=== PATIENT | female | born 1970 | race Caucasian/White ===

== ENCOUNTER → 2016-03-22 | Outpatient (CLI) | payer BC ==
[2016-03-22 19:11] LABS: MEAN CORPUSCULAR HEMOGLOBIN 30.8 pg (27.0-33.0); MEAN CORPUSCULAR HGB CONC 32.3 g/dl (32.0-36.5); MEAN CORPUSCULAR VOLUME 95.5 fl (80.0-96.0); RED CELL DISTRIBUTION WIDTH 12.9 % (11.5-14.5); WHITE BLOOD COUNT 5.9 K/mm3 (4.0-10.0)
[2016-03-22 19:29] LABS: ALBUMIN 3.6 GM/DL (3.2-5.2); ALBUMIN/GLOBULIN RATIO 1.09 (1.00-1.93); ALKALINE PHOSPHATASE 37 U/L (45-117); ALT/SGPT 26 U/L (12-78); ANION GAP 8 MEQ/L (8-16); AST/SGOT 17 U/L (15-37); BILIRUBIN,TOTAL 0.4 MG/DL (0.2-1.0); BLOOD UREA NITROGEN 11 MG/DL (7-18); CALCIUM LEVEL 8.5 MG/DL (8.5-10.1); CARBON DIOXIDE LEVEL 26 MEQ/L (21-32); CHLORIDE LEVEL 106 MEQ/L (98-107); CHOLESTEROL LEVEL 247 MG/DL (<200); CREATININE FOR GFR 0.77 MG/DL (0.55-1.02); FREE T4 0.97 NG/DL (0.76-1.46); GLOMERULAR FILTRATION RATE > 60.0 (>58); GLUCOSE, FASTING 87 MG/DL (70-105); POTASSIUM SERUM 4.4 MEQ/L (3.5-5.1); SODIUM LEVEL 140 MEQ/L (136-145); TOTAL PROTEIN 6.9 GM/DL (6.4-8.2); TRIGLYCERIDES LEVEL 109 MG/DL (<150)
== END ==
LOC: M WUC 09:49
PROVIDERS: ATTEND Nurse Practitioner Family
DX: R73.9 Hyperglycemia, unspecified (principal); E78.00 Pure hypercholesterolemia, unspecified

== ENCOUNTER → 2016-06-03 | Outpatient (REF) | payer BC ==
[~2016-06-03] MED LIST: ASCO25TA PO; CYCL10TA PO; ECOT81TA5 PO; FISH1000 PO; IRON65TA PO; LEVO112T2 PO; MAGN1CAP PO; METF1000 PO; MULT1TAB10 PO; SEASTAB PO; SIMV40TA2 PO; VITATAB11 PO; ZYRT10CA PO
[2016-06-03 17:27] LABS: MEAN CORPUSCULAR HEMOGLOBIN 31.4 pg (27.0-33.0); MEAN CORPUSCULAR HGB CONC 33.1 g/dl (32.0-36.5); MEAN CORPUSCULAR VOLUME 94.9 fl (80.0-96.0)
[2016-06-03 17:45] LABS: ANION GAP 10 MEQ/L (8-16); BLOOD UREA NITROGEN 14 MG/DL (7-18); CARBON DIOXIDE LEVEL 25 MEQ/L (21-32); CHLORIDE LEVEL 106 MEQ/L (98-107); GLOMERULAR FILTRATION RATE > 60.0 (>58); GLUCOSE, FASTING 116 MG/DL (70-105); SODIUM LEVEL 141 MEQ/L (136-145)
== END ==
LOC: M LAB REF 16:20
PROVIDERS: ATTEND Anesthesiology
DX: Z02.89 Encounter for other administrative examinations (principal)

== ENCOUNTER → 2016-06-14 | Outpatient (CLI) | payer BC | LOC: M WUC 10:29 | PROVIDERS: ATTEND Nurse Practitioner Family | DX: E78.00 Pure hypercholesterolemia, unspecified (principal) ==

== ENCOUNTER → 2016-06-14 | Outpatient (CLI) | payer BC ==
[2016-06-14 18:04] LABS: FREE T4 0.75 NG/DL (0.76-1.46)
== END ==
LOC: M WUC 10:33
PROVIDERS: ATTEND Internal Medicine
DX: E06.3 Autoimmune thyroiditis (principal); R73.02 Impaired glucose tolerance (oral)

== ENCOUNTER 2016-06-16 08:22 | Day surgery (SDC) | payer BC ==
[2016-06-16] VITALS (8 sets, daily range): BP systolic 138–185; BP diastolic 72–100
[~2016-06-16] VITALS: Ht 160 cm; Wt 93.0 kg
[~2016-06-16 08:22] MED LIST changes: +LIDOCAINE 2% INJ 100 MG/5 ML SDV (FOR ANES.) As Ordered ONE; +MIDAZOLAM INJ 2 MG/2 ML VIAL (J2250) As Ordered ONE; +PROPOFOL 200 MG/20 ML VIAL As Ordered ONE; +ROCURONIUM BROMIDE 50 MG/5 ML VIAL As Ordered ONE; +fentaNYL 250 MCG/5 ML INJECTION (J3010) As Ordered ONE
[2016-06-16] MEDS ORDERED: LR 1,000 ML IV SCH ×3 (08:30→12:45)
[2016-06-16 09:10] LABS: CONTROL LINE HCG INT CTR LINE PRESENT
[2016-06-16] MEDS ORDERED: SCOPOLAMINE 1.5 MG TRANSDERMAL As Ordered ONE (09:46)
[2016-06-16] MEDS ORDERED: SCOPOLAMINE 1.5 MG TRANSDERMAL TOP ONE (10:00)
[2016-06-16] MEDS ORDERED: ONDANSETRON 4MG/2ML VIAL (J2405) As Ordered ONE (12:07)
[2016-06-16] MEDS ORDERED: GLYCOPYRROLATE INJ 0.2 MG/ML 2 ML VIAL As Ordered ONE (12:07)
[2016-06-16] MEDS ORDERED: KETOROLAC 60 MG/2 ML VIAL (J1885) As Ordered ONE (12:07)
[2016-06-16] MEDS ORDERED: NEOSTIGMINE 1MG/ML 5 ML SYRINGE (J2710) As Ordered ONE (12:07)
[2016-06-16] MEDS ORDERED: fentaNYL 100 MCG/2 ML INJECTION (J3010) As Ordered ONE (12:08)
[2016-06-16] MEDS ORDERED: fentaNYL 100 MCG/2 ML INJECTION (J3010) IV PRN (12:45)
[2016-06-16] MEDS ORDERED: diphenhydrAMINE INJ 50MG/ML VIAL (J1200) IV PRN (12:45)
[2016-06-16] MEDS ORDERED: PROMETHAZINE INJ 25 MG/ML VIAL (J2550) IV PRN (12:45)
[2016-06-16] MEDS ORDERED: ONDANSETRON 4MG/2ML VIAL (J2405) IV PRN (12:45)
[2016-06-16] MEDS ORDERED: NORCO, ANEXSIA 5/325MG TABLET (HYDROcodone/ACETAMINOPHEN) PO PRN (12:45)
[2016-06-16] MEDS ORDERED: IBUPROFEN 600 MG TAB PO PRN (12:45)
[2016-06-16] MEDS ORDERED: NALOXONE INJ 0.4 MG/1 ML VIAL (J2310) IV PRN (12:45)
[2016-06-16] MEDS ORDERED: MORPHINE PCA 1MG/ML 100ML CADD IV PRN (12:45)
[2016-06-16] MEDS ORDERED: NALBUPHINE HCL 10 MG/ML AMP (J2300) IV PRN (12:45)
[2016-06-16] MEDS ORDERED: EPIDURAL/PCA KEYS XX PRN (12:45)
[2016-06-16] MEDS: LR 1,000 ML IV SCH ×2 (14:55→18:52)
[2016-06-16] MEDS: ASCORBIC ACID 500 MG TAB PO SCH (14:55)
--- NOTE | 2016-06-16 16:39 | RO ---
DATE OF PROCEDURE: 06/16/2016 PREOPERATIVE DIAGNOSES/INDICATION FOR SURGERY: 1. Menorrhagia. 2. Dysmenorrhea. ADDITIONAL DIAGNOSIS: Fibroids POSTOPERATIVE DIAGNOSIS: 1. Menorrhagia. 2. Dysmenorrhea. PROCEDURE: Laparoscopically assisted vaginal hysterectomy and bilateral salpingo-oophorectomy ([facility]) SURGEON: Daniella Lee MD CAN VACUUM TESTER: ANESTHESIA: General endotracheal anesthesia. BRIEF DESCRIPTION OF PROCEDURE AND FINDINGS: Angelica was brought to the operating room where sufficient general endotracheal anesthesia was induced. She was prepped, draped and positioned in the usual fashion. The Rivera with the ability to backfill that we used to check the bladder was placed and then the uterine manipulator was placed. Attention was then turned to the abdomen where a transverse semi-lunar incision was made below the umbilicus. Sharp and blunt dissection were continued tissues to the level of the rectus fascia which was elevated with Deniz clamps, transversely incised, secured with a #0 Vicryl retention suture and then the peritoneum entered under direct visualization. The Tania cannula was then placed without difficulty and secured in place with a #0 Vicryl retention suture. The CO2 was then hooked up. We attempted to initiate CO2 insufflation. There was some difficulty with the insufflator although the computer reported that it was working normally, it did not develop pressure and did not actually put out any carbon dioxide gas. After multiple checks on that particular instrument, we then went ahead and called for a new CO2 insufflator. We were not able to proceed with the case until the insufflator was changed out. This took give or take an approximately 40 minute delay of the case. After we put in a new insufflator though and had everything hooked up again we were able to insufflate without difficulty. Visualization of the abdominal and pelvic cavity showed normal shiny peritoneal surfaces throughout. There is no excretion ascites nor exudate. Descending colon did have a few tiny adhesions to the pelvic sidewall and the latera abdominal sidewall. These are shown with a smooth manipulator. They are not tenting or moving or altering the course of the bowel in any way. We did not take all of those down. There does not appear to be any other significant lesions in regards to adhesions or scarring. There was a right frontal fibroid and this is photographed. We then placed through the operative port the 45 mm Enseal and we were able to use that through the port to isolate, cauterize, and transect the infundibulopelvic ligament bilaterally and the round ligaments bilaterally in the superior aspect of the broad. Having dissected these bilaterally, we turned out attention below. The uterine manipulator was removed. The instruments of course were removed from the trocar at the umbilicus and we made a circumferential incision around the base of the cervix, securing it of course with 2 single tooth tenacula. We then isolated the cardinal ligaments, clamped, transected and ligated those. We then clamped, transected and ligated the uterosacrals and entered the peritoneum posteriorly and then continued the dissection anteriorly to enter the peritoneum and continue to isolate, clamp, transect and ligated the uterine vasculature which was done in a sequential fashion along the lateral aspect of the uterus until the previous dissection with the Enseal was reached and the uterus with the attached ovaries and tube and of course the fibroid was then delivered. Pedicles were evaluated. Good hemostasis was confirmed. Angle stitches of #0 Vicryl were used to close the vaginal cuff and of course the uterosacrals were re-secured and the cuff closed with #0 Vicryl in a running lock stitch. The umbilical trocar was then removed. Fascial wounds at the umbilicus were closed with the #0 Vicryl retention sutures and then the skin closed at the umbilicus with the #3-0 subcuticular stitch with good approximation and hemostasis of both layers. The procedure was then ended. ESTIMATED BLOOD LOSS: About 100 mL. FLUID REPLACEMENT: Crystalloid. COMPLICATIONS: None. CONDITION AND DISPOSITION: Angelica tolerated the procedure well and was recovering in the recovery room in good condition.
[2016-06-16] MEDS ORDERED: metFORMIN (GLUCOPHAGE) 1000 MG TABLET PO SCH (18:00)
[2016-06-16] MEDS: MAGNESIUM GLUCONATE 500 MG TAB PO SCH (18:52)
[2016-06-16] MEDS ORDERED: PROMETHAZINE INJ 25 MG/ML VIAL (J2550) IV ONE (20:15)
[2016-06-16] MEDS ORDERED: LEVOTHYROXINE 0.112 MG TAB (112 MCG) PO SCH (21:00)
[2016-06-16] MEDS ORDERED: SIMVASTATIN 20 MG TAB PO SCH (21:00)
[2016-06-17] VITALS: BP 162/71
[2016-06-17] MEDS: LR 1,000 ML IV SCH (02:30)
[2016-06-17 04:00] VITALS: BP 166/85
[2016-06-17] MEDS ORDERED: NORCO, ANEXSIA 5/325MG TABLET (HYDROcodone/ACETAMINOPHEN) PO PRN (06:00)
[2016-06-17 07:01] LABS: MEAN CORPUSCULAR HEMOGLOBIN 33.3 pg (27.0-33.0); MEAN CORPUSCULAR HGB CONC 35.3 g/dl (32.0-36.5); MEAN CORPUSCULAR VOLUME 94.5 fl (80.0-96.0); RED CELL DISTRIBUTION WIDTH 11.6 % (11.5-14.5); WHITE BLOOD COUNT 10.8 K/mm3 (4.0-10.0)
[2016-06-17] MEDS: MAGNESIUM GLUCONATE 500 MG TAB PO SCH (08:14)
[2016-06-17] MEDS: ASCORBIC ACID 500 MG TAB PO SCH (08:14)
[2016-06-17 08:26] VITALS: BP 162/94
== END 2016-06-17 09:08 | disposition home or self-care (01) ==
LOC: M SDC 08:22 → M PED 14:23 → M SDC 06-17 09:08
PROVIDERS: ATTEND Obstetrics & Gynecology
DX: N92.0 Excessive and frequent menstruation with regular cycle (principal); N94.6 Dysmenorrhea, unspecified; D25.9 Leiomyoma of uterus, unspecified; E88.81 Metabolic syndrome and other insulin resistance; E03.9 Hypothyroidism, unspecified; E06.3 Autoimmune thyroiditis; D64.9 Anemia, unspecified; T88.59XD Other complications of anesthesia, subsequent encounter; G43.909 Migraine, unspecified, not intractable, without status migrainosus; Z79.899 Other long term (current) drug therapy; Z79.82 Long term (current) use of aspirin
CPT/HCPCS: 36415; 58552; 84703; 85027; 86850; 86900; 86901; 88309; 96374; 96375; 96376; J0690; J1885; J2250; J2405; J2710; J3010

== ENCOUNTER → 2016-09-22 | Outpatient (CLI) | payer BC ==
[~2016-09-22] MED LIST changes: -LIDOCAINE 2% INJ 100 MG/5 ML SDV (FOR ANES.) As Ordered ONE; -METF1000 PO; +METF10004 PO; -MIDAZOLAM INJ 2 MG/2 ML VIAL (J2250) As Ordered ONE; -PROPOFOL 200 MG/20 ML VIAL As Ordered ONE; -ROCURONIUM BROMIDE 50 MG/5 ML VIAL As Ordered ONE; -fentaNYL 250 MCG/5 ML INJECTION (J3010) As Ordered ONE
[2016-09-22 11:18] LABS: FREE T4 0.99 NG/DL (0.76-1.46)
== END ==
LOC: M WUC 09:28
PROVIDERS: ATTEND Internal Medicine Endocrinology, Diabetes & Metabolism
DX: E06.3 Autoimmune thyroiditis (principal)

== ENCOUNTER → 2016-09-22 | Outpatient (CLI) | payer BC ==
[2016-09-22 10:39] LABS: MEAN CORPUSCULAR HGB CONC 34.6 g/dl (32.0-36.5); MEAN CORPUSCULAR VOLUME 92.6 fl (80.0-96.0); RED CELL DISTRIBUTION WIDTH 11.9 % (11.5-14.5)
== END ==
LOC: M WUC 09:24
PROVIDERS: ATTEND Nurse Practitioner Family
DX: E78.5 Hyperlipidemia, unspecified (principal); D58.9 Hereditary hemolytic anemia, unspecified

== ENCOUNTER → 2016-09-24 | Outpatient (CLI) | payer BC ==
[2016-09-24 13:24] LABS: MAGNESIUM LEVEL 2.2 MG/DL (1.8-2.4); POTASSIUM SERUM 4.2 MEQ/L (3.5-5.1)
== END ==
LOC: M WUC 10:07
PROVIDERS: ATTEND Nurse Practitioner Family
DX: R25.2 Cramp and spasm (principal)

== ENCOUNTER → 2016-10-22 | Outpatient (CLI) | payer BC | LOC: M WUC 09:27 | PROVIDERS: ATTEND Nurse Practitioner Family | DX: E06.3 Autoimmune thyroiditis (principal) ==

== ENCOUNTER → 2017-03-25 | Outpatient (CLI) | payer BC ==
[2017-03-25 12:52] LABS: HEMATOCRIT 40.8 % (36.0-47.0); HEMOGLOBIN 13.6 g/dl (12.0-16.0); MEAN CORPUSCULAR HEMOGLOBIN 30.8 pg (27.0-33.0); MEAN CORPUSCULAR HGB CONC 33.3 g/dl (32.0-36.5); MEAN CORPUSCULAR VOLUME 92.3 fl (80.0-96.0); PLATELET COUNT, AUTOMATED 221 10^3/uL (150-450); RED BLOOD COUNT 4.42 10^6/uL (4.00-5.40); RED CELL DISTRIBUTION WIDTH 12.2 % (11.5-14.5)
[2017-03-25 13:18] LABS: TOTAL 25(OH) VITAMIN D 39.4 NG/ML (30.0-100.0)
[2017-03-25 13:30] LABS: ALBUMIN 3.8 GM/DL (3.2-5.2); ALBUMIN/GLOBULIN RATIO 1.12 (1.00-1.93); ALKALINE PHOSPHATASE 85 U/L (45-117); ALT/SGPT 31 U/L (12-78); ANION GAP 7 MEQ/L (8-16); AST/SGOT 21 U/L (7-37); BILIRUBIN,TOTAL 0.4 MG/DL (0.2-1.0); BLOOD UREA NITROGEN 14 MG/DL (7-18); CALCIUM LEVEL 9.5 MG/DL (8.5-10.1); CARBON DIOXIDE LEVEL 30 MEQ/L (21-32); CHLORIDE LEVEL 105 MEQ/L (98-107); CHOLESTEROL LEVEL 220 MG/DL (<200); CHOLESTEROL RISK RATIO 3.055 (<5); CREATININE FOR GFR 0.75 MG/DL (0.55-1.30); GLOMERULAR FILTRATION RATE > 60.0 (>58); GLUCOSE, FASTING 97 MG/DL (70-100); HDL CHOLESTEROL 72 MG/DL (>40); LDL CHOLESTEROL 125.4 MG/DL (<100); MAGNESIUM LEVEL 2.1 MG/DL (1.8-2.4); NON-HDL-C 148 MG/DL; POTASSIUM SERUM 4.7 MEQ/L (3.5-5.1); SODIUM LEVEL 142 MEQ/L (136-145); TOTAL PROTEIN 7.2 GM/DL (6.4-8.2); TRIGLYCERIDES LEVEL 113 MG/DL (<150)
== END ==
LOC: M WUC 08:35
DX: E78.00 Pure hypercholesterolemia, unspecified (principal); E55.9 Vitamin D deficiency, unspecified
CPT/HCPCS: 83735

== ENCOUNTER → 2017-04-06 | Outpatient (CLI) | payer BC ==
[2017-04-06 17:35] LABS: C REACTIVE PROTEIN QUANTITATIV < 0.30 MG/DL (0.00-0.30)
[2017-04-06 17:35] LABS: RHEUMATOID FACTOR QUANT < 10.0 IU/ML (0-15.0)
[2017-04-08 14:13] LABS: ANTINUCLEAR ANTIBODIES DIRECT Negative (Negative)
== END ==
LOC: M WUC 13:47
DX: M25.50 Pain in unspecified joint (principal)
CPT/HCPCS: 86140

== ENCOUNTER → 2017-04-15 | Outpatient (CLI) | payer BC ==
[2017-04-15 14:40] LABS: FREE T4 0.96 NG/DL (0.76-1.46)
[2017-04-15 14:40] LABS: THYROID STIMULATING HORMONE 0.143 uIU/ML (0.358-3.740)
== END ==
LOC: M WUC 10:58
DX: E06.3 Autoimmune thyroiditis (principal)

== ENCOUNTER → 2017-06-09 | Outpatient (CLI) | payer BC | LOC: M WHC 08:05 | DX: Z12.31 Encounter for screening mammogram for malignant neoplasm of breast (principal); Z78.0 Asymptomatic menopausal state; Z92.0 Personal history of contraception | CPT/HCPCS: 77067 ==

== ENCOUNTER → 2017-07-13 | Outpatient (CLI) | payer BC | LOC: M WUC 15:43 | DX: M25.572 Pain in left ankle and joints of left foot (principal) ==

== ENCOUNTER → 2017-09-04 | Outpatient (CLI) | payer BC ==
[2017-09-04 14:29] LABS: THYROID STIMULATING HORMONE 0.342 uIU/ML (0.358-3.740)
[2017-09-04 14:29] LABS: FREE T4 0.97 NG/DL (0.76-1.46)
== END ==
LOC: M WUC 09:08
DX: E06.3 Autoimmune thyroiditis (principal)
CPT/HCPCS: 84443

== ENCOUNTER → 2017-09-25 | Outpatient (CLI) | payer BC ==
[2017-09-25 08:47] LABS: HEMATOCRIT 42.2 % (36.0-47.0); HEMOGLOBIN 14.2 g/dl (12.0-15.5); MEAN CORPUSCULAR HEMOGLOBIN 31.4 pg (27.0-33.0); MEAN CORPUSCULAR HGB CONC 33.6 g/dl (32.0-36.5); MEAN CORPUSCULAR VOLUME 93.4 fl (80.0-96.0); PLATELET COUNT, AUTOMATED 226 10^3/uL (150-450); RED BLOOD COUNT 4.52 10^6/uL (4.00-5.40); RED CELL DISTRIBUTION WIDTH 12.6 % (11.5-14.5); WHITE BLOOD COUNT 6.2 10^3/uL (4.0-10.0)
[2017-09-25 09:22] LABS: ALBUMIN 3.6 GM/DL (3.2-5.2); ALBUMIN/GLOBULIN RATIO 1.09 (1.00-1.93); ALKALINE PHOSPHATASE 82 U/L (45-117); ALT/SGPT 47 U/L (12-78); ANION GAP 10 MEQ/L (8-16); AST/SGOT 29 U/L (7-37); BILIRUBIN,TOTAL 0.3 MG/DL (0.2-1.0); BLOOD UREA NITROGEN 12 MG/DL (7-18); CALCIUM LEVEL 8.8 MG/DL (8.5-10.1); CARBON DIOXIDE LEVEL 27 MEQ/L (21-32); CHLORIDE LEVEL 107 MEQ/L (98-107); CHOLESTEROL LEVEL 221 MG/DL (<200); CHOLESTEROL RISK RATIO 3.298 (<5); CPK CREATINE PHOSPHOKINASE 128 U/L (26-192); CREATININE FOR GFR 0.73 MG/DL (0.55-1.30); FREE T4 1.02 NG/DL (0.76-1.46); GLOMERULAR FILTRATION RATE > 60.0 (>58); GLUCOSE, FASTING 109 MG/DL (70-100); HDL CHOLESTEROL 67 MG/DL (>40); LDL CHOLESTEROL 127.2 MG/DL (<100); NON-HDL-C 154 MG/DL; POTASSIUM SERUM 4.4 MEQ/L (3.5-5.1); SODIUM LEVEL 144 MEQ/L (136-145); THYROID STIMULATING HORMONE 0.383 uIU/ML (0.358-3.740); TOTAL PROTEIN 6.9 GM/DL (6.4-8.2); TRIGLYCERIDES LEVEL 134 MG/DL (<150)
[2017-09-25 09:54] LABS: ESTIMATED AVERAGE GLUCOSE 120 MG/DL (60-110); HEMOGLOBIN A1c 5.8 %
== END ==
LOC: M WUC 08:04
DX: E03.9 Hypothyroidism, unspecified (principal); E88.81 Metabolic syndrome and other insulin resistance
CPT/HCPCS: 82550

== ENCOUNTER → 2017-12-05 | Outpatient (CLI) | payer BC ==
[2017-12-05 20:37] LABS: ANION GAP 10 MEQ/L (8-16); BLOOD UREA NITROGEN 11 MG/DL (7-18); CALCIUM LEVEL 8.5 MG/DL (8.5-10.1); CARBON DIOXIDE LEVEL 25 MEQ/L (21-32); CHLORIDE LEVEL 107 MEQ/L (98-107); CREATININE FOR GFR 0.77 MG/DL (0.55-1.30); GLOMERULAR FILTRATION RATE > 60.0 (>58); GLUCOSE, FASTING 148 MG/DL (70-100); POTASSIUM SERUM 3.9 MEQ/L (3.5-5.1); SODIUM LEVEL 142 MEQ/L (136-145)
== END ==
LOC: M WUC 09:41
DX: E11.9 Type 2 diabetes mellitus without complications (principal)
CPT/HCPCS: 80048

== ENCOUNTER → 2018-04-10 | Outpatient (CLI) | payer BC ==
[2018-04-10 11:23] LABS: HEMATOCRIT 42.7 % (36.0-47.0); MEAN CORPUSCULAR HEMOGLOBIN 30.6 pg (27.0-33.0); MEAN CORPUSCULAR HGB CONC 32.8 g/dl (32.0-36.5); MEAN CORPUSCULAR VOLUME 93.2 fl (80.0-96.0); PLATELET COUNT, AUTOMATED 230 10^3/uL (150-450); RED BLOOD COUNT 4.58 10^6/uL (4.00-5.40); WHITE BLOOD COUNT 5.1 10^3/uL (4.0-10.0)
[2018-04-10 12:07] LABS: ALT/SGPT 43 U/L (12-78); BILIRUBIN,TOTAL 0.4 MG/DL (0.2-1.0); BLOOD UREA NITROGEN 12 MG/DL (7-18); CALCIUM LEVEL 8.9 MG/DL (8.5-10.1); CARBON DIOXIDE LEVEL 30 MEQ/L (21-32); CHLORIDE LEVEL 105 MEQ/L (98-107); CHOLESTEROL LEVEL 236 MG/DL (<200); CPK CREATINE PHOSPHOKINASE 123 U/L (26-192); CREATININE FOR GFR 0.74 MG/DL (0.55-1.30); GLOMERULAR FILTRATION RATE > 60.0 (>58); GLUCOSE, FASTING 114 MG/DL (70-100); HDL CHOLESTEROL 68 MG/DL (>40); LDL CHOLESTEROL 142 MG/DL (<100); NON-HDL-C 168 MG/DL; POTASSIUM SERUM 4.4 MEQ/L (3.5-5.1); SODIUM LEVEL 141 MEQ/L (136-145); THYROID STIMULATING HORMONE 0.582 uIU/ML (0.358-3.740); TOTAL PROTEIN 7.2 GM/DL (6.4-8.2); TRIGLYCERIDES LEVEL 129 MG/DL (<150)
[2018-04-10 12:18] LABS: HEMOGLOBIN A1c 6.1 %
== END ==
LOC: M WUC 09:02
PROVIDERS: ATTEND Internal Medicine Cardiovascular Disease
DX: E78.00 Pure hypercholesterolemia, unspecified (principal); I10 Essential (primary) hypertension; E03.9 Hypothyroidism, unspecified; E88.81 Metabolic syndrome and other insulin resistance

== ENCOUNTER → 2018-04-10 | Outpatient (CLI) | payer BC ==
[2018-04-10 12:13] LABS: BILIRUBIN,DIRECT 0.1 MG/DL (0.0-0.2); BILIRUBIN,TOTAL 0.4 MG/DL (0.2-1.0); CHOLESTEROL RISK RATIO 3.214 (<5); THYROID STIMULATING HORMONE 0.632 uIU/ML (0.358-3.740)
== END ==
LOC: M WUC 09:05
PROVIDERS: ATTEND Internal Medicine Endocrinology, Diabetes & Metabolism
DX: E06.3 Autoimmune thyroiditis (principal)

== ENCOUNTER → 2018-06-15 | Outpatient (CLI) | payer BC ==
[~2018-06-15] MED LIST changes: -ASCO25TA PO; +VITA1TAB23 PO
--- NOTE | 2018-06-15 17:03 | REP ---
DIAGNOSTIC MAMMOGRAM RIGHT BREAST WITH RIGHT BREAST ULTRASOUND: Multiple spot compression views of the right breast were performed. These confirm the presence of a somewhat lobulated nodule in the right breast slightly medial and inferior to the right nipple. This is approximately 5-6 cm from the nipple. Real-time sonographic evaluation of the right breast is performed. In the right retroareolar region about 2-3 cm from the nipple there is an oval complex cystic nodule. This may contain internal soft tissue components. It measures 6 x 3 x 6 mm. IMPRESSION; ACR 4 suspicious. A somewhat lobulated nodule is confirmed in the right breast, mid third, just medial and slightly inferior to the nipple line. By ultrasound there is a complex cystic and possibly partially solid nodule in the retroareolar region. I recommend ultrasound guided biopsy of the retroareolar nodule. If this does not correspond to the nodule on the mammogram then stereotactic biopsy is indicated of the nodule on the mammogram. The patient letter being requested is M4. Electronically Signed by Suhail Bird MD 06/16/2018 10:32 A
== END ==
LOC: M RAD 08:46
PROVIDERS: ATTEND Obstetrics & Gynecology
DX: N63.10 Unspecified lump in the right breast, unspecified quadrant (principal); N60.01 Solitary cyst of right breast

== ENCOUNTER → 2018-06-24 | Outpatient (CLI) | payer BC ==
[~2018-06-24] MED LIST changes: +LIDOCAINE 1% MDV 20ML VIAL As Ordered ONE
--- NOTE | 2018-06-24 14:42 | REP ---
RIGHT BREAST MAMMOGRAM: ML and CC views of the right breast are performed status post ultrasound guided biopsy of a complex nodule. A metallic clip is seen at the site of the biopsy. This does not correspond to the nodule seen on the mammogram. Therefore sterotactic biopsy is indicated for the nodule centrally behind the nipple identified on the prior mammograms of 06/10/2018 and 06/15/2018. Electronically Signed by Suhail Bird MD 06/25/2018 12:21 P
--- NOTE | 2018-06-25 11:16 | REP ---
ULTRASOUND GUIDED RIGHT BREAST BIOPSY The procedure was performed under the direct supervision of Dr. Bird The patient has a history of an oval complex cystic nodule measuring 6 x 3 x 6 mm 2-3 cm from the nipple seen on a previous ultrasound dated 06/15/2018. The risks and benefits of the procedure were explained to the patient and informed consent was obtained. The right breast nodule was localized using ultrasound guidance. The skin was prepped and draped in a sterile fashion. 1% Xylocaine was used as a local anesthetic. Using ultrasound guidance a 13-gauge suction assisted Mammotome needle was inserted and six core biopsy samples were obtained. A marker clip was placed at the biopsy site. The patient tolerated the procedure well and there were no immediate complications. After the appropriate amount of monitored convalescence the patient was discharged from the department. Reviewed by FREDY Bhatti 06/24/2018 04:48 P Electronically Signed by Suhail Bird MD 06/25/2018 11:07 A
== END ==
LOC: M RADPRO 11:14
PROVIDERS: ATTEND Obstetrics & Gynecology
DX: N60.11 Diffuse cystic mastopathy of right breast (principal)

== ENCOUNTER → 2018-07-01 | Outpatient (CLI) | payer BC ==
--- NOTE | 2018-07-01 13:47 | REP ---
POST PROCEDURE MAMMOGRAM: Post procedure mammogram performed following sterotactic biopsy of a nodule in the posterior mid right breast. A metallic marking clip was deployed following the biopsy. The biopsy clip appears to be displaced below and somewhat medial to the biopsy site. There do appear to be multiple needle fenestrations in the region of the nodule in question which would suggest successful biopsy. Recommend followup mammogram in 6 months. Electronically Signed by Suhail Bird MD 07/01/2018 04:23 P
--- NOTE | 2018-07-01 16:16 | REP ---
Stereotactic breast biopsy. This procedure is performed by FREDY Romero, under the personal supervision of Dr. Bird. The risks and benefits of the procedure were explained to the patient and informed consent was obtained both verbally and written. Directly prior to the start of the procedure, a formal timeout was done in the procedure room. The the lateral medial approach was utilized. The nodule was localized using stereotactic mammographic guidance. 7 ml of 1% lidocaine was used as a local anesthetic. And 8-gauge, suction assisted Mammotome needle was inserted and six core biopsy samples were obtained. A marker clip was placed at the biopsy site. The needle was removed and homeostasis was achieved. The patient tolerated the procedure well and there were no immediate complications. After appropriate monitoring the patient was discharged from the department. Impression: Technically successful stereotactic breast biopsy Reviewed by FREDY Gilmore 07/01/2018 01:40 P Electronically Signed by Suhail Bird MD 07/01/2018 04:07 P
== END ==
LOC: M RADPRO 10:46
PROVIDERS: ATTEND Nurse Practitioner Women's Health
DX: N60.11 Diffuse cystic mastopathy of right breast (principal)

== ENCOUNTER → 2018-12-08 | Outpatient (CLI) | payer OTHER ==
[~2018-12-08] MED LIST changes: +AUGM875T28 PO; -LIDOCAINE 1% MDV 20ML VIAL As Ordered ONE
[2018-12-08 10:49] LABS: CHOLESTEROL RISK RATIO 3.645 (<5)
== END ==
LOC: M WUC 08:37
PROVIDERS: ATTEND Internal Medicine Endocrinology, Diabetes & Metabolism
DX: E78.00 Pure hypercholesterolemia, unspecified (principal)

== ENCOUNTER 2019-01-28 17:40 | Emergency (ER) | payer MEDICAID, OTHER ==
[~2019-01-28] VITALS: Ht 160 cm; Wt 97.7 kg
[~2019-01-28 17:40] MED LIST changes: -SIMV40TA2 PO; +SIMV40TA20 PO
[2019-01-28] MEDS ORDERED: NS 1,000 ML IV ONE (18:00)
[2019-01-28] MEDS ORDERED: KETOROLAC 30 MG/ML VIAL (J1885) IV ONE (18:00)
[2019-01-28] MEDS ORDERED: ONDANSETRON 4MG/2ML VIAL (J2405) IV ONE (18:00)
[2019-01-28 18:50] LABS: BASO # 0.1 10^3/uL (0.0-0.2); BASO % 0.5 % (0.0-1.0); EOS % 0.3 % (0.0-3.0); HEMATOCRIT 44.9 % (36.0-47.0); LYMPH # 2.9 10^3/uL (1.5-5.0); LYMPH % 31.9 % (24.0-44.0); MEAN CORPUSCULAR HEMOGLOBIN 30.4 pg (27.0-33.0); MEAN CORPUSCULAR HGB CONC 33.4 g/dl (32.0-36.5); MEAN CORPUSCULAR VOLUME 91.1 fl (80.0-96.0); MONO # 0.6 10^3/uL (0.0-0.8); NEUTROPHILS # 5.6 10^3/uL (1.5-8.5); NEUTROPHILS % 61.1 % (36.0-66.0); PLATELET COUNT, AUTOMATED 249 10^3/uL (150-450); RED BLOOD COUNT 4.93 10^6/uL (4.00-5.40); WHITE BLOOD COUNT 9.2 10^3/uL (4.0-10.0)
[2019-01-28 19:05] LABS: ALBUMIN 4.1 GM/DL (3.2-5.2); BILIRUBIN,DIRECT 0.1 MG/DL (0.0-0.2); BILIRUBIN,TOTAL 0.3 MG/DL (0.2-1.0); CALCIUM LEVEL 9.9 MG/DL (8.5-10.1); CREATININE FOR GFR 1.06 MG/DL (0.55-1.30); GLOMERULAR FILTRATION RATE 58.7 (>58); POTASSIUM SERUM 3.9 MEQ/L (3.5-5.1); TOTAL PROTEIN 7.5 GM/DL (6.4-8.2)
[2019-01-28] MEDS ORDERED: NORC1TAB7 PO ×2 (20:06→20:07)
[2019-01-28 20:16] VITALS: BP 164/85
--- NOTE | 2019-01-31 09:29 | REP ---
REPEAT DICTATION CT ABDOMEN AND PELVIS WITHOUT CONTRAST: HISTORY: Left flank pain. Question kidney stone. Preliminary report is provided by the [facility] at the time of the exam. No comparison study. CT FINDINGS: Preliminary digital hold worker radiograph shows a few loops of air-filled small bowel in the right central abdomen. There is profound diffuse fatty infiltration of the liver. There are areas of mild fat sparing. The spleen is unremarkable. The liver is at the upper range of normal in size measuring 16.3 cm in craniocaudal span in the midclavicular line. No focal liver mass lesion is seen. No adrenal lesion is seen. The pancreas is unremarkable. No abnormalities noted in the gallbladder. There is no evidence of intrarenal calculus on either side. No right-sided hydronephrosis is seen. On the left there is mild to moderate left hydronephrosis and ureterectasis. There is mild perinephric stranding and swelling of the left kidney seen. There is a tiny distal ureteral calculus at the ureterovesical junction on the left seen on coronal multiplanar re-formation image number 70 of 124 in series 202 of today's study. No other ureteral calculus is seen. No bladder calculus is observed. Uterus is surgically absent. A normal appendix is apparent. No abdominal wall defect is seen. IMPRESSION: Tiny left distal ureteral calculus with moderate left sided hydroureteronephrosis and diffuse left renal swelling. There is profound diffuse fatty infiltration of the liver with areas of fat sparing. Borderline hepatomegaly. Electronically Signed by Ponce Clark MD 01/31/2019 12:14 P
== END 2019-01-28 20:54 | disposition home or self-care (01) ==
LOC: M ED 17:40
DX: K76.0 Fatty (change of) liver, not elsewhere classified (principal); N13.2 Hydronephrosis with renal and ureteral calculous obstruction; M48.061 Spinal stenosis, lumbar region without neurogenic claudication; Z79.82 Long term (current) use of aspirin; Z79.84 Long term (current) use of oral hypoglycemic drugs; Z79.899 Other long term (current) drug therapy
CPT/HCPCS: 74176; 80048; 80076; 81001; 83690; 85025; 96361; 96374; 96375; 99284; J1885; J2405

== ENCOUNTER → 2019-06-08 | Outpatient (CLI) | payer OTHER ==
[~2019-06-08] MED LIST changes: +CYCL-707 PO; -CYCL10TA PO; +NORC1TAB7 PO
[2019-06-08 16:39] LABS: ALT/SGPT 42 U/L (12-78); BILIRUBIN,TOTAL 0.5 MG/DL (0.2-1.0); BLOOD UREA NITROGEN 10 MG/DL (7-18); CALCIUM LEVEL 9.3 MG/DL (8.5-10.1); CARBON DIOXIDE LEVEL 28 MEQ/L (21-32); CHLORIDE LEVEL 105 MEQ/L (98-107); CHOLESTEROL LEVEL 276 MG/DL (<200); CHOLESTEROL RISK RATIO 4.058 (<5); CREATININE FOR GFR 0.66 MG/DL (0.55-1.30); FREE T4 1.22 NG/DL (0.76-1.46); GLOMERULAR FILTRATION RATE > 60.0 (>51); GLUCOSE, FASTING 95 MG/DL (70-100); HDL CHOLESTEROL 68 MG/DL (>40); LDL CHOLESTEROL 176 MG/DL (<100); NON-HDL-C 208 MG/DL; SODIUM LEVEL 139 MEQ/L (136-145); THYROID STIMULATING HORMONE 0.949 uIU/ML (0.358-3.740); TOTAL PROTEIN 7.5 GM/DL (6.4-8.2); TRIGLYCERIDES LEVEL 158 MG/DL (<150)
== END ==
LOC: M WUC 11:25
PROVIDERS: ATTEND Internal Medicine Endocrinology, Diabetes & Metabolism
DX: E06.3 Autoimmune thyroiditis (principal); E11.9 Type 2 diabetes mellitus without complications

== ENCOUNTER → 2019-11-24 | Outpatient (CLI) | payer OTHER ==
[~2019-11-24] MED LIST changes: -VITA1TAB23 PO; +VITA250T20 PO
[2019-11-24 11:52] LABS: CHOLESTEROL RISK RATIO 3.647 (<5)
== END ==
LOC: M WUC 08:29
PROVIDERS: ATTEND Internal Medicine Endocrinology, Diabetes & Metabolism
DX: E06.3 Autoimmune thyroiditis (principal); E11.9 Type 2 diabetes mellitus without complications

== ENCOUNTER → 2020-05-23 | Outpatient (CLI) | payer OTHER ==
[2020-05-23 12:05] LABS: HEMOGLOBIN A1c 5.8 %
[2020-05-23 12:10] LABS: CHOLESTEROL RISK RATIO 3.272 (<5); THYROID STIMULATING HORMONE 1.29 uIU/ML (0.358-3.740)
== END ==
LOC: M WUC 09:40
PROVIDERS: ATTEND Internal Medicine Endocrinology, Diabetes & Metabolism
DX: E06.3 Autoimmune thyroiditis (principal); E78.00 Pure hypercholesterolemia, unspecified; E11.9 Type 2 diabetes mellitus without complications

== ENCOUNTER → 2020-11-14 | Outpatient (CLI) | payer OTHER ==
[2020-11-14 09:52] LABS: HEMOGLOBIN A1c 5.8 %
[2020-11-14 10:07] LABS: CHOLESTEROL RISK RATIO 3.626 (<5); THYROID STIMULATING HORMONE 0.224 uIU/ML (0.358-3.740)
== END ==
LOC: M WUC 08:27
PROVIDERS: ATTEND Internal Medicine Endocrinology, Diabetes & Metabolism
DX: E06.3 Autoimmune thyroiditis (principal); E11.9 Type 2 diabetes mellitus without complications; E78.00 Pure hypercholesterolemia, unspecified

== ENCOUNTER → 2020-11-22 | Outpatient (REF) | payer OTHER ==
[2020-11-22 18:06] LABS: CREATININE, URINE 74.9 MG/DL; MALB URINE SIEMENS < 5.0 MG/L; MAU/CREAT RATIO 6.6 MCG/MG (0.0-30.0)
== END ==
LOC: M LAB REF 17:07
PROVIDERS: ATTEND Nurse Practitioner Family
DX: E11.9 Type 2 diabetes mellitus without complications (principal)

== ENCOUNTER → 2021-03-22 | Outpatient (CLI) | payer OTHER ==
[2021-03-22 10:26] LABS: BLOOD UREA NITROGEN 9 MG/DL (7-18); CARBON DIOXIDE LEVEL 27 MEQ/L (21-32); CHLORIDE LEVEL 106 MEQ/L (98-107); CREATININE FOR GFR 0.76 MG/DL (0.55-1.30); GLOMERULAR FILTRATION RATE > 60.0 (>51); GLUCOSE, FASTING 111 MG/DL (70-100); POTASSIUM SERUM 4.1 MEQ/L (3.5-5.1); SODIUM LEVEL 142 MEQ/L (136-145)
[2021-03-22 10:27] LABS: ALBUMIN 3.7 GM/DL (3.2-5.2); ALT/SGPT 45 U/L (12-78); BILIRUBIN,TOTAL 0.4 MG/DL (0.2-1.0); CHOLESTEROL LEVEL 240 MG/DL (<200); CHOLESTEROL RISK RATIO 3.582 (<5); FREE T4 1.17 NG/DL (0.76-1.46); HDL CHOLESTEROL 67 MG/DL (>40); LDL CHOLESTEROL 151 MG/DL (<100); NON-HDL-C 173 MG/DL; THYROID STIMULATING HORMONE 0.557 uIU/ML (0.358-3.740); TOTAL PROTEIN 7.1 GM/DL (6.4-8.2); TRIGLYCERIDES LEVEL 108 MG/DL (<150)
[2021-03-22 10:30] LABS: TOTAL 25(OH) VITAMIN D 25.2 NG/ML (30.0-100.0)
== END ==
LOC: M WUC 08:40
PROVIDERS: ATTEND Nurse Practitioner Family
DX: E06.3 Autoimmune thyroiditis (principal); E78.00 Pure hypercholesterolemia, unspecified; M25.50 Pain in unspecified joint

== ENCOUNTER → 2021-09-19 | Outpatient (CLI) | payer OTHER ==
[2021-09-19 11:08] LABS: ALBUMIN 3.6 GM/DL (3.2-5.2); ALT/SGPT 44 U/L (12-78); BILIRUBIN,TOTAL 0.4 MG/DL (0.2-1.0); BLOOD UREA NITROGEN 9 MG/DL (7-18); CALCIUM LEVEL 9.2 MG/DL (8.5-10.1); CARBON DIOXIDE LEVEL 28 MEQ/L (21-32); CHLORIDE LEVEL 107 MEQ/L (98-107); CHOLESTEROL LEVEL 220 MG/DL (<200); CHOLESTEROL RISK RATIO 3.492 (<5); GLOMERULAR FILTRATION RATE > 60.0 (>51); GLUCOSE, FASTING 111 MG/DL (70-100); HDL CHOLESTEROL 63 MG/DL (>40); LDL CHOLESTEROL 130 MG/DL (<100); NON-HDL-C 157 MG/DL; POTASSIUM SERUM 4.2 MEQ/L (3.5-5.1); SODIUM LEVEL 141 MEQ/L (136-145); TOTAL PROTEIN 6.6 GM/DL (6.4-8.2); TRIGLYCERIDES LEVEL 136 MG/DL (<150)
[2021-09-19 11:12] LABS: TOTAL 25(OH) VITAMIN D 44.3 NG/ML (30.0-100.0)
== END ==
LOC: M WUC 08:17
PROVIDERS: ATTEND Nurse Practitioner Family
DX: E78.00 Pure hypercholesterolemia, unspecified (principal); E55.9 Vitamin D deficiency, unspecified

== ENCOUNTER → 2021-09-23 | Outpatient (REF) | payer OTHER ==
[2021-09-23 18:04] LABS: MALB URINE SIEMENS 6.1 MG/L; MAU/CREAT RATIO 3.9 MCG/MG (0.0-30.0)
== END ==
LOC: M LAB REF 16:49
PROVIDERS: ATTEND Nurse Practitioner Family
DX: E11.9 Type 2 diabetes mellitus without complications (principal)

== ENCOUNTER 2022-01-28 10:40 | Emergency (ER) | payer OTHER ==
[~2022-01-28] VITALS: Ht 160 cm; Wt 102.3 kg
[2022-01-28] MEDS ORDERED: EZET10TA21 (10:50)
[2022-01-28 16:37] VITALS: BP 164/87
== END 2022-01-28 16:39 | disposition home or self-care (01) ==
LOC: M ED 10:40
DX: R22.42 Localized swelling, mass and lump, left lower limb (principal); M79.662 Pain in left lower leg; E11.9 Type 2 diabetes mellitus without complications; E03.9 Hypothyroidism, unspecified; E78.5 Hyperlipidemia, unspecified; G89.29 Other chronic pain; M54.9 Dorsalgia, unspecified; Z90.710 Acquired absence of both cervix and uterus; Z79.84 Long term (current) use of oral hypoglycemic drugs; Z79.890 Hormone replacement therapy; Z79.899 Other long term (current) drug therapy

== ENCOUNTER → 2022-03-06 | Outpatient (CLI) | payer OTHER ==
[~2022-03-06] MED LIST changes: +EZET10TA21
[2022-03-06 10:25] LABS: ALBUMIN 3.7 G/DL (3.2-5.2); ALKALINE PHOSPHATASE 60 U/L (46-116); ALT/SGPT 33 U/L (7.0-40); AST/SGOT 25 U/L (<34); BILIRUBIN,TOTAL 0.3 MG/DL (0.3-1.2); BLOOD UREA NITROGEN 11 MG/DL (9-23); CALCIUM LEVEL 8.9 MG/DL (8.5-10.1); CARBON DIOXIDE LEVEL 27 MMOL/L (20-31); CHLORIDE LEVEL 104 MMOL/L (98-107); CHOLESTEROL LEVEL 213 MG/DL (<200); CHOLESTEROL RISK RATIO 3.23 (<5); CREATININE FOR GFR 0.66 MG/DL (0.55-1.30); FREE T4 1.19 NG/DL (0.89-1.76); GLOMERULAR FILTRATION RATE > 60.0 (>51); GLUCOSE, FASTING 105 MG/DL (60-100); HDL CHOLESTEROL 65.8 MG/DL (>40); NON-HDL-C 147 MG/DL; POTASSIUM SERUM 4.2 MMOL/L (3.5-5.1); SODIUM LEVEL 140 MMOL/L (136-145); THYROID STIMULATING HORMONE 0.623 uIU/ML (0.55-4.78); TOTAL PROTEIN 6.5 G/DL (5.7-8.2); TRIGLYCERIDES LEVEL 111 MG/DL (<150)
== END ==
LOC: M WUC 08:12
PROVIDERS: ATTEND Nurse Practitioner Family
DX: E78.00 Pure hypercholesterolemia, unspecified (principal); E06.3 Autoimmune thyroiditis

== ENCOUNTER → 2022-10-01 | Outpatient (CLI) | payer OTHER ==
[2022-10-01 11:08] LABS: CREATININE, URINE 175.6 MG/DL
[2022-10-01 11:09] LABS: ALBUMIN 3.8 G/DL (3.2-5.2); ALKALINE PHOSPHATASE 64 U/L (46-116); ALT/SGPT 35 U/L (7.0-40); AST/SGOT 25 U/L (<34); BILIRUBIN,TOTAL 0.5 MG/DL (0.3-1.2); BLOOD UREA NITROGEN 10 MG/DL (9-23); CALCIUM LEVEL 9.1 MG/DL (8.5-10.1); CARBON DIOXIDE LEVEL 26 MMOL/L (20-31); CHLORIDE LEVEL 104 MMOL/L (98-107); CHOLESTEROL LEVEL 223 MG/DL (<200); CHOLESTEROL RISK RATIO 3.45 (<5); CREATININE FOR GFR 0.68 MG/DL (0.55-1.30); GLOMERULAR FILTRATION RATE > 60.0 (>51); GLUCOSE, FASTING 103 MG/DL (60-100); HDL CHOLESTEROL 64.6 MG/DL (>40); NON-HDL-C 158.4 MG/DL; POTASSIUM SERUM 4.1 MMOL/L (3.5-5.1); SODIUM LEVEL 141 MMOL/L (136-145); TOTAL 25(OH) VITAMIN D 45.8 NG/ML (20.0-100.0); TOTAL PROTEIN 6.6 G/DL (5.7-8.2); TRIGLYCERIDES LEVEL 107 MG/DL (<150)
[2022-10-01 11:10] LABS: FREE T4 1.28 NG/DL (0.89-1.76); MALB URINE SIEMENS < 3.0 MG/L; MAU/CREAT RATIO 1.7 MCG/MG (0.0-30.0); THYROID STIMULATING HORMONE 1.314 uIU/ML (0.55-4.78)
== END ==
LOC: M WUC 08:24
PROVIDERS: ATTEND Nurse Practitioner Family
DX: E78.00 Pure hypercholesterolemia, unspecified (principal); E11.9 Type 2 diabetes mellitus without complications; E06.3 Autoimmune thyroiditis; E55.9 Vitamin D deficiency, unspecified

== ENCOUNTER → 2023-04-25 | Outpatient (CLI) | payer OTHER ==
[2023-04-25 10:53] LABS: ALBUMIN 3.8 G/DL (3.2-5.2); ALKALINE PHOSPHATASE 59 U/L (46-116); ALT/SGPT 23 U/L (7.0-40); AST/SGOT 18 U/L (<34); BILIRUBIN,TOTAL 0.4 MG/DL (0.3-1.2); BLOOD UREA NITROGEN 15 MG/DL (9-23); CARBON DIOXIDE LEVEL 30 MMOL/L (20-31); CHLORIDE LEVEL 105 MMOL/L (98-107); CHOLESTEROL LEVEL 201 MG/DL (<200); CHOLESTEROL RISK RATIO 3.45 (<5); CREATININE FOR GFR 0.66 MG/DL (0.55-1.30); GLOMERULAR FILTRATION RATE > 60.0 (>51); GLUCOSE, FASTING 110 MG/DL (60-100); HDL CHOLESTEROL 58.2 MG/DL (>40); LDL CHOLESTEROL 123.4 MG/DL (<100); NON-HDL-C 142.8 MG/DL; POTASSIUM SERUM 4.4 MMOL/L (3.5-5.1); SODIUM LEVEL 140 MMOL/L (136-145); TOTAL PROTEIN 6.6 G/DL (5.7-8.2); TRIGLYCERIDES LEVEL 97 MG/DL (<150)
== END ==
LOC: M LAB 08:17
PROVIDERS: ATTEND Internal Medicine
DX: E78.00 Pure hypercholesterolemia, unspecified (principal)

== ENCOUNTER → 2023-06-20 | Outpatient (CLI) | payer OTHER | LOC: M RAD 12:57 | PROVIDERS: ATTEND Physician Assistant | DX: M25.361 Other instability, right knee (principal) ==

== ENCOUNTER → 2023-11-03 | Outpatient (CLI) | payer OTHER ==
[2023-11-03 10:43] LABS: BASO % 0.5 % (0.0-1.0); EOS # 0.1 10^3/uL (0.0-0.5); EOS % 0.9 % (0.0-3.0); HEMATOCRIT 41.3 % (36.0-47.0); HEMOGLOBIN 14.2 g/dl (12.0-15.5); LYMPH # 2.1 10^3/uL (1.5-5.0); LYMPH % 35.7 % (24.0-44.0); MEAN CORPUSCULAR HEMOGLOBIN 31.4 pg (27.0-33.0); MEAN CORPUSCULAR HGB CONC 34.4 g/dl (32.0-36.5); MEAN CORPUSCULAR VOLUME 91.4 fl (80.0-96.0); MONO # 0.4 10^3/uL (0.0-0.8); NEUTROPHILS # 3.3 10^3/uL (1.5-8.5); NEUTROPHILS % 55.7 % (36.0-66.0); PLATELET COUNT, AUTOMATED 225 10^3/uL (150-450); RED BLOOD COUNT 4.52 10^6/uL (4.00-5.40); WHITE BLOOD COUNT 5.9 10^3/uL (4.0-10.0)
[2023-11-03 10:53] LABS: ERYTHROCYTE SEDIMENTATION RATE 19 mm/hr (0-30)
[2023-11-03 10:55] LABS: INR 0.92; PARTIAL THROMBOPLASTIN TIME 27.5 SECONDS (24.8-34.2); PROTHROMBIN TIME 12.1 SECONDS (12.5-14.5)
[2023-11-03 11:09] LABS: CHOLESTEROL LEVEL 251 MG/DL (<200); CHOLESTEROL RISK RATIO 3.61 (<5); GLUCOSE,RANDOM 109 MG/DL (LESS THAN 200); HDL CHOLESTEROL 69.4 MG/DL (>40); LDL CHOLESTEROL 161.2 MG/DL (<100); NON-HDL-C 181.6 MG/DL; TRIGLYCERIDES LEVEL 102 MG/DL (<150)
[2023-11-03 11:40] LABS: IMMUNOGLOBULIN A 164.6 MG/DL (40-350); IMMUNOGLOBULIN G 873 MG/DL (650-1600)
[2023-11-03 12:35] LABS: HEMOGLOBIN A1c 5.8 % (4.0-6.0)
[2023-11-04 07:48] LABS: T P ELECTROPHORESIS SO 7.1 g/dL (6.1-8.1)
[2023-11-04 14:46] LABS: ANA SCREEN, IFA POSITIVE (NEGATIVE); ANA TITER 1:40 titer (<1:40)
== END ==
LOC: M LAB 09:10
PROVIDERS: ATTEND Physician Assistant
DX: H34.83 Tributary (branch) retinal vein occlusion (principal)

== ENCOUNTER → 2023-12-03 | Outpatient (CLI) | payer OTHER | LOC: M RAD 10:04 | PROVIDERS: ATTEND Physician Assistant | DX: H34.8312 Tributary (branch) retinal vein occlusion, right eye, stable (principal); H16.223 Keratoconjunctivitis sicca, not specified as Sjogren's, bilateral ==

== ENCOUNTER → 2024-01-18 | Outpatient (CLI) | payer OTHER ==
[2024-01-18 10:36] LABS: HEMATOCRIT 44.3 % (36.0-47.0); HEMOGLOBIN 14.7 g/dl (12.0-15.5); MEAN CORPUSCULAR HEMOGLOBIN 31.1 pg (27.0-33.0); MEAN CORPUSCULAR HGB CONC 33.2 g/dl (32.0-36.5); MEAN CORPUSCULAR VOLUME 93.9 fl (80.0-96.0); PLATELET COUNT, AUTOMATED 211 10^3/uL (150-450); RED BLOOD COUNT 4.72 10^6/uL (4.00-5.40); WHITE BLOOD COUNT 5.6 10^3/uL (4.0-10.0)
[2024-01-18 11:11] LABS: THYROID STIMULATING HORMONE 0.166 uIU/ML (0.55-4.78); TOTAL 25(OH) VITAMIN D 41.8 NG/ML (20.0-100.0)
[2024-01-18 11:12] LABS: ALBUMIN 4.1 G/DL (3.2-5.2); ALKALINE PHOSPHATASE 56 U/L (35-104); ALT/SGPT 22 U/L (7.0-40); AST/SGOT 16 U/L (<34); BILIRUBIN,TOTAL 0.5 MG/DL (0.3-1.2); BLOOD UREA NITROGEN 12 MG/DL (9-23); CALCIUM LEVEL 9.9 MG/DL (8.5-10.1); CARBON DIOXIDE LEVEL 29 MMOL/L (20-31); CHLORIDE LEVEL 106 MMOL/L (98-107); CHOLESTEROL LEVEL 182 MG/DL (<200); CHOLESTEROL RISK RATIO 2.84 (<5); CREATININE FOR GFR 0.75 MG/DL (0.55-1.30); FREE T4 1.45 NG/DL (0.89-1.76); GLOMERULAR FILTRATION RATE > 60.0 (>51); GLUCOSE, FASTING 100 MG/DL (60-100); HDL CHOLESTEROL 63.9 MG/DL (>40); LDL CHOLESTEROL 99.7 MG/DL (<100); NON-HDL-C 118.1 MG/DL; POTASSIUM SERUM 4.4 MMOL/L (3.5-5.1); SODIUM LEVEL 140 MMOL/L (136-145); TOTAL PROTEIN 7.2 G/DL (5.7-8.2); TRIGLYCERIDES LEVEL 92 MG/DL (<150)
[2024-01-18 13:41] LABS: HEMOGLOBIN A1c 5.7 % (4.0-6.0)
== END ==
LOC: M LAB 09:39
PROVIDERS: ATTEND Nurse Practitioner Adult Health
DX: I10 Essential (primary) hypertension (principal); E78.5 Hyperlipidemia, unspecified; E03.9 Hypothyroidism, unspecified; E55.9 Vitamin D deficiency, unspecified

== ENCOUNTER → 2024-04-14 | Outpatient (CLI) | payer OTHER ==
[2024-04-14 10:46] LABS: HEMATOCRIT 45.8 % (36.0-47.0); HEMOGLOBIN 15.1 g/dl (12.0-15.5); MEAN CORPUSCULAR HEMOGLOBIN 30.5 pg (27.0-33.0); MEAN CORPUSCULAR VOLUME 92.5 fl (80.0-96.0); PLATELET COUNT, AUTOMATED 222 10^3/uL (150-450); RED BLOOD COUNT 4.95 10^6/uL (4.00-5.40); WHITE BLOOD COUNT 6.1 10^3/uL (4.0-10.0)
[2024-04-14 10:59] LABS: HEMOGLOBIN A1c 5.7 % (4.0-6.0)
[2024-04-14 11:15] LABS: ALBUMIN 3.9 G/DL (3.2-5.2); ALKALINE PHOSPHATASE 57 U/L (35-104); ALT/SGPT 28 U/L (7.0-40); AST/SGOT 23 U/L (<34); BILIRUBIN,TOTAL 0.4 MG/DL (0.3-1.2); BLOOD UREA NITROGEN 15 MG/DL (9-23); CALCIUM LEVEL 9.1 MG/DL (8.5-10.1); CARBON DIOXIDE LEVEL 30 MMOL/L (20-31); CHLORIDE LEVEL 102 MMOL/L (98-107); CHOLESTEROL LEVEL 153 MG/DL (<200); CHOLESTEROL RISK RATIO 2.12 (<5); CREATININE FOR GFR 0.66 MG/DL (0.55-1.30); GLOMERULAR FILTRATION RATE > 60.0 (>51); GLUCOSE, FASTING 109 MG/DL (60-100); HDL CHOLESTEROL 72.1 MG/DL (>40); LDL CHOLESTEROL 66.1 MG/DL (<100); NON-HDL-C 80.9 MG/DL; POTASSIUM SERUM 4.3 MMOL/L (3.5-5.1); SODIUM LEVEL 142 MMOL/L (136-145); TOTAL PROTEIN 6.9 G/DL (5.7-8.2); TRIGLYCERIDES LEVEL 74 MG/DL (<150)
[2024-04-14 11:16] LABS: FREE T4 1.46 NG/DL (0.89-1.76); THYROID STIMULATING HORMONE 0.269 uIU/ML (0.55-4.78)
[2024-04-14 11:17] LABS: TOTAL 25(OH) VITAMIN D 45.7 NG/ML (20.0-100.0)
== END ==
LOC: M WUC 08:02
PROVIDERS: ATTEND Nurse Practitioner Adult Health
DX: I10 Essential (primary) hypertension (principal); E78.5 Hyperlipidemia, unspecified; E03.9 Hypothyroidism, unspecified; E55.9 Vitamin D deficiency, unspecified; R73.03 Prediabetes; K21.9 Gastro-esophageal reflux disease without esophagitis

== ENCOUNTER → 2024-10-13 | Outpatient (CLI) | payer OTHER ==
[2024-10-13 10:18] LABS: PLATELET COUNT, AUTOMATED 213 10^3/uL (150-450)
[2024-10-13 10:55] LABS: ALT/SGPT 20 U/L (7.0-40); AST/SGOT 23 U/L (<34); CALCIUM LEVEL 9.4 MG/DL (8.5-10.1); CARBON DIOXIDE LEVEL 29 MMOL/L (20-31); CHLORIDE LEVEL 103 MMOL/L (98-107); CHOLESTEROL LEVEL 194 MG/DL (<200); CHOLESTEROL RISK RATIO 2.94 (<5); CREATININE FOR GFR 0.75 MG/DL (0.55-1.30); FREE T4 1.57 NG/DL (0.89-1.76); GLOMERULAR FILTRATION RATE > 90.0 (>51); LDL CHOLESTEROL 104.8 MG/DL (<100); NON-HDL-C 128.2 MG/DL; POTASSIUM SERUM 4.5 MMOL/L (3.5-5.1); SODIUM LEVEL 141 MMOL/L (136-145); TRIGLYCERIDES LEVEL 117 MG/DL (<150)
[2024-10-13 11:21] LABS: ESTIMATED AVERAGE GLUCOSE 126.0 MG/DL (60-110)
== END ==
LOC: M LAB 09:15
PROVIDERS: ATTEND Internal Medicine Cardiovascular Disease
DX: E78.5 Hyperlipidemia, unspecified (principal); I10 Essential (primary) hypertension; E03.9 Hypothyroidism, unspecified; E55.9 Vitamin D deficiency, unspecified; R73.03 Prediabetes; K21.9 Gastro-esophageal reflux disease without esophagitis; Z79.899 Other long term (current) drug therapy